=== PATIENT | female | born 1960 | race Caucasian/White ===

== ENCOUNTER 2017-02-19 13:28 | Outpatient (CLI) | payer BC ==
[~2017-02-19] VITALS: Ht 165.1 cm; Wt 94.8 kg
[2017-02-19] MEDS ORDERED: PANTOPRAZOLE 40 MG/10 ML (PROTONIX) VIAL ONE (13:49)
[2017-02-19] MEDS ORDERED: ONDANSETRON 4 MG/2 ML (SDV) Z0FRAN ONE (13:49)
[2017-02-19] MEDS ORDERED: METOCLOPRAMIDE INJ 10 MG/2 ML (REGLAN) ONE (13:49)
[2017-02-19] MEDS ORDERED: NS IV 1000 ML 2,000 ML ONE (13:50)
[2017-02-19] MEDS ORDERED: ONDANSETRON 4 MG/2 ML (SDV) Z0FRAN IV PRN (14:00)
[2017-02-19] MEDS ORDERED: PANTOPRAZOLE 40 MG/10 ML (PROTONIX) VIAL IV ONE (14:00)
[2017-02-19] MEDS ORDERED: METOCLOPRAMIDE INJ 10 MG/2 ML (REGLAN) IV PRN (14:00)
[2017-02-19] MEDS ORDERED: NS IV 1000 ML 1,000 ML IV SCH (14:00)
[2017-02-19 14:28] VITALS: BP 126/79
[2017-02-19 18:14] VITALS: BP 126/79
== END 2017-02-19 18:15 | disposition home or self-care (01) ==
LOC: SDC 13:28
PROVIDERS: ATTEND Nurse Practitioner Family
DX: R11.2 Nausea with vomiting, unspecified (principal); E86.0 Dehydration
CPT/HCPCS: 96360; 96361; 96374; 96375

== ENCOUNTER 2017-03-01 09:57 | Emergency (ER) | payer BC ==
[~2017-03-01] VITALS: Ht 165.1 cm; Wt 88.5 kg
--- NOTE | 2017-03-01 10:41 | ED GI ---
General Stated Complaint: CANT KEEP FOOD/LIQUIDS DOWN Source of Information: Patient Exam Limitations: No Limitations History of Present Illness Time Seen By Provider: 10:39 Initial Comments To ER with nausea and vomiting. She is only able to tolerate ice chips by mouth. She denies any abdominal pain fevers or chills. She is 3 weeks post gastric sleeve by Dr. Olson. She states that she has not been bowel movements. She has been trying Zofran and Phenergan at home without relief. Timing/Duration: 1-2 Days Severity/Quality: Other (no pain) Associated Symptoms: Nausea/Vomiting Allergies and Home Medications Allergies Coded Allergies: hydrocodone (Unverified Allergy, Unknown, 02/19/17) ITCHING PER PT Home Medications No Active Prescriptions or Reported Meds Review of Systems Constitutional: see HPI EENTM: No Symptoms Reported Respiratory: No Symptoms Reported Gastrointestinal: See HPI, Nausea, Vomiting Genitourinary: No Symptoms Reported Musculoskeletal: no symptoms reported Skin: no symptoms reported Psychiatric/Neurological: No Symptoms Reported Endocrine: No Symptoms Reported Past Fircwwv-Nhguib-Ttmtys Hx Patient Social History Type Used: Cigarettes Recent Foreign Travel: No Contact w/Someone Who Travel: No Recent Hopitalizations: No Immunizations Up To Date Tetanus Booster (TDap): Unknown Date of Influenza Vaccine: Dec 18, 2016 Seasonal Allergies Seasonal Allergies: No Surgeries HX Surgeries: Yes (BARIATRIC SX - JAN 2017, BREAST REDUCTION) Surgeries: Breast, Tonsillectomy Respiratory Hx Respiratory Disorders: No Cardiovascular Hx Cardiac Disorders: No Neurological Hx Neurological Disorders: No Reproductive System Hx Reproductive Disorders: No Genitourinary Hx Genitourinary Disorders: No Gastrointestinal Hx Gastrointestinal Disorders: No Musculoskeletal Hx Musculoskeletal Disorders: No Endocrine Hx Endocrine Disorders: No HEENT HX ENT Disorders: Yes (GLASSES) Loss of Vision: Bilateral Hearing Impairment: Denies Cancer Hx Cancer: No Psychosocial Hx Psychiatric Problems: Yes Behavioral Health Disorders: Anxiety Integumentary HX Skin/Integumentary Disorder: No Blood Transfusions Hx Blood Disorders: No Physical Exam Vital Signs VS - Last 72 Hours, by Label 03/01/17 10:41 Temp 97.5 Pulse 118 B/P (MAP) 129/99 Pulse Ox 98 Capillary Refill : General Appearance: WD/WN, no apparent distress HEENT: PERRL/EOMI, normal ENT inspection Neck: non-tender, full range of motion Respiratory: no respiratory distress, no accessory muscle use Cardiovascular: no murmur, tachycardia Gastrointestinal: normal bowel sounds, non tender, soft, other (incisions to the abdomen are clean dry and intact without drainage or surrounding erythema. Bowel sounds are hypoactive but present.) Extremities: normal range of motion, non-tender, normal inspection Neurologic/Psychiatric: alert, normal mood/affect, oriented x 3 Skin: normal color, warm/dry Progress/Results/Core Measures Results/Orders Lab Results Laboratory Tests Test 03/01/17 10:45 03/01/17 12:04 Range/Units White Blood Count 9.6 4.3-11.0 10^3/uL Red Blood Count 5.21 4.35-5.85 10^6/uL Hemoglobin 15.3 11.5-16.0 G/DL Hematocrit 46 35-52 % Mean Corpuscular Volume 88 80-99 FL Mean Corpuscular Hemoglobin 29 25-34 PG Mean Corpuscular Hemoglobin Concent 34 32-36 G/DL Red Cell Distribution Width 13.2 10.0-14.5 % Platelet Count 473 H 130-400 10^3/uL Mean Platelet Volume 11.3 H 7.4-10.4 FL Neutrophils (%) (Auto) 72 42-75 % Lymphocytes (%) (Auto) 17 12-44 % Monocytes (%) (Auto) 9 0-12 % Eosinophils (%) (Auto) 1 0-10 % Basophils (%) (Auto) 1 0-10 % Neutrophils # (Auto) 7.0 1.8-7.8 X 10^3 Lymphocytes # (Auto) 1.7 1.0-4.0 X 10^3 Monocytes # (Auto) 0.9 0.0-1.0 X 10^3 Eosinophils # (Auto) 0.1 0.0-0.3 10^3/uL Basophils # (Auto) 0.1 0.0-0.1 10^3/uL Sodium Level 146 H 135-145 MMOL/L Potassium Level 3.0 L 3.6-5.0 MMOL/L Chloride Level 102 98-107 MMOL/L Carbon Dioxide Level 22 21-32 MMOL/L Anion Gap 22 H 5-14 MMOL/L Blood Urea Nitrogen 18 7-18 MG/DL Creatinine 0.89 0.60-1.30 MG/DL Estimat Glomerular Filtration Rate > 60 BUN/Creatinine Ratio 20 Glucose Level 109 H 70-105 MG/DL Calcium Level 10.5 H 8.5-10.1 MG/DL Magnesium Level 2.0 1.8-2.4 MG/DL Total Bilirubin 0.5 0.1-1.0 MG/DL Aspartate Amino Transf (AST/SGOT) 20 5-34 U/L Alanine Aminotransferase (ALT/SGPT) 17 0-55 U/L Alkaline Phosphatase 21 L 40-136 U/L Total Protein 8.1 6.4-8.2 G/DL Albumin 4.3 3.2-4.5 G/DL Urine Color YELLOW Urine Clarity CLEAR Urine pH 6 5-9 Urine Specific [place] 1.020 1.016-1.022 Urine Protein 3+ H NEGATIVE Urine Glucose (UA) NEGATIVE NEGATIVE Urine Ketones 4+ H NEGATIVE Urine Nitrite NEGATIVE NEGATIVE Urine Bilirubin 2+ H NEGATIVE Urine Urobilinogen 4 H NORMAL MG/DL Urine Leukocyte Esterase 2+ H NEGATIVE Urine RBC (Auto) NEGATIVE NEGATIVE Urine RBC NONE /HPF Urine WBC 25-50 H /HPF Urine Squamous Epithelial Cells 10-25 H /HPF Urine Crystals NONE /LPF Urine Bacteria FEW H /HPF Urine Casts NONE /LPF Urine Mucus SMALL H /LPF Urine Culture Indicated YES My Orders Orders - VALERIE JUÁREZ APRN Saline Lock/Iv-Start (03/01/17 10:39) Lactated Ringers (Lr 1000 Ml Iv Solution (03/01/17 10:45) Diphenhydramine Injection (Benadryl Inje (03/01/17 10:45) Prochlorperazine Injection (Compazine In (03/01/17 10:45) Acute Abd Series (03/01/17 11:10) Potassium Chloride Powder (Klor Con 20 M (03/01/17 11:30) Ondansetron Injection (Zofran Injectio (03/01/17 11:45) Ceftriaxone Injection (Rocephin Injectio (03/01/17 12:30) Ns Iv 1000 Ml (Sodium Chloride 0.9%) (03/01/17 12:30) Medications Given in ED Current Medications Medications Dose Ordered Sig/Bela Route Start Time Stop Time Status Last Admin Dose Admin Diphenhydramine HCl 25 mg ONCE ONCE IVP 03/01/17 10:45 03/01/17 10:46 DC 03/01/17 11:07 25 MG Ondansetron HCl 8 mg ONCE ONCE IVP 03/01/17 11:45 03/01/17 11:46 DC 03/01/17 11:46 8 MG Prochlorperazine Edisylate 5 mg ONCE ONCE IV 03/01/17 10:45 03/01/17 10:46 DC 03/01/17 11:08 5 MG Vital Signs/I&O Vital Sign - Last 12Hours 03/01/17 10:41 Temp 97.5 Pulse 118 B/P (MAP) 129/99 Pulse Ox 98 Diagnostic Imaging Diagonstic Imaging: Xray Comments NAME: LARON DONOVAN [facility] REC#: [id number] PT STATUS: REG ER : 1960 PHYSICIAN: VALERIE JUÁREZ [employer] ADMIT DATE: 03/01/17/ER Draft Date of Exam:03/01/17 ACUTE ABD SERIES INDICATION: Unable to keep food down. History of gastric sleeve. COMPARISON: None available. FINDINGS: Lungs are clear. Please note that the posterior lower lobes are poorly evaluated on frontal view. No pleural effusion or pneumothorax. Normal heart size. No free intraperitoneal air. There are postoperative changes in the epigastric region compatible with the patient's gastric sleeve. Nonobstructive bowel gas pattern. No air-fluid levels on upright imaging. Age-related degenerative changes in the lumbar spine. IMPRESSION: 1. No acute cardiopulmonary process. 2. No free intraperitoneal air. Nonobstructive bowel gas pattern. 3. Postoperative changes in the epigastric region are compatible with patient's reported gastric sleeve. Dictated on workstation # [id number] Dict: 03/01/17 1130 Trans: 03/01/17 1140 CATIE [id number] Interpreted by: DANIEL CHUNG MD Electronically signed by: Departure Communication Progress Notes 1157-no improvement in her nausea after Benadryl 25 mg IV, Compazine 5 mg IV and Zofran 8 mg IV. However, she has not yet vomited. Impression Impression: Primary Impression: Post-operative nausea and vomiting Disposition: 01 HOME, SELF-CARE Condition: Stable Departure-Patient Inst. Decision time for Depature: 11:57 Referrals: ANA LILIA JOEL DO (PCP/Family) Primary Care Physician Patient Instructions: Nausea and Vomiting, Adult Add. Discharge Instructions: 1. Small frequent sips of liquids 2. Follow-up with Dr. Olson 3. Scripts Ciprofloxacin HCl (Cipro) 500 Mg Tablet 500 MG PO BID, #10 TAB Prov: VALERIE JUÁREZ APRN 03/01/17 VALERIE JUÁREZ APRN Mar 01, 2017 10:41
[2017-03-01] MEDS ORDERED: PROCHLORPERAZINE 10 MG/2ML INJ (COMPAZINE) IV ONE (10:45)
[2017-03-01] MEDS ORDERED: LACTATED RINGERS 1,000 ML IV SCH (10:45)
[2017-03-01] MEDS ORDERED: diphenhydrAMINE 50 MG/ML INJ (BENADRYL) IVP ONE (10:45)
[2017-03-01 10:54] LABS: BASOPHILS # (AUTO) 0.1 10^3/uL (0.0-0.1); BASOPHILS % (AUTO) 1 % (0-10); EOSINOPHILS # (AUTO) 0.1 10^3/uL (0.0-0.3); EOSINOPHILS % (AUTO) 1 % (0-10); LYMPHOCYTES # (AUTO) 1.7 X 10^3 (1.0-4.0); LYMPHOCYTES % (AUTO) 17 % (12-44); MEAN CORPUSCULAR HEMOGLOBIN 29 PG (25-34); MEAN CORPUSCULAR HGB CONC 34 G/DL (32-36); MEAN CORPUSCULAR VOLUME 88 FL (80-99); MEAN PLATELET VOLUME 11.3 FL (7.4-10.4); MONOCYTES # (AUTO) 0.9 X 10^3 (0.0-1.0); MONOCYTES % (AUTO) 9 % (0-12); NEUTROPHILS % (AUTO) 72 % (42-75); PLATELET COUNT 473 10^3/uL (130-400); RED BLOOD COUNT 5.21 10^6/uL (4.35-5.85); RED CELL DISTRIBUTION WIDTH 13.2 % (10.0-14.5); WHITE BLOOD COUNT 9.6 10^3/uL (4.3-11.0)
[2017-03-01 11:14] LABS: ALANINE AMINOTRANSFERASE 17 U/L (0-55); ALBUMIN 4.3 G/DL (3.2-4.5); ANION GAP 22 MMOL/L (5-14); ASPARTATE AMINO TRANSFERASE 20 U/L (5-34); BILIRUBIN,TOTAL 0.5 MG/DL (0.1-1.0); BLOOD UREA NITROGEN 18 MG/DL (7-18); BUN/CREATININE RATIO 20; CALCIUM 10.5 MG/DL (8.5-10.1); CARBON DIOXIDE 22 MMOL/L (21-32); CHLORIDE 102 MMOL/L (98-107); CREATININE SERUM 0.89 MG/DL (0.60-1.30); GFR ESTIMATED > 60; GLUCOSE 109 MG/DL (70-105); SODIUM 146 MMOL/L (135-145); TOTAL PROTEIN 8.1 G/DL (6.4-8.2)
[2017-03-01] MEDS ORDERED: KCL 20 MEQ POWDER FOR ORAL SOLUTION PO ONE (11:30)
--- NOTE | 2017-03-01 11:40 | Diagnostic Imaging Report ---
INDICATION: Unable to keep food down. History of gastric sleeve. COMPARISON: None available. FINDINGS: Lungs are clear. Please note that the posterior lower lobes are poorly evaluated on frontal view. No pleural effusion or pneumothorax. Normal heart size. No free intraperitoneal air. There are postoperative changes in the epigastric region compatible with the patient's gastric sleeve. Nonobstructive bowel gas pattern. No air-fluid levels on upright imaging. Age-related degenerative changes in the lumbar spine. IMPRESSION: 1. No acute cardiopulmonary process. 2. No free intraperitoneal air. Nonobstructive bowel gas pattern. 3. Postoperative changes in the epigastric region are compatible with patient's reported gastric sleeve. Dictated by: Dictated on workstation # [id number]
[2017-03-01] MEDS ORDERED: ONDANSETRON 4 MG/2 ML (SDV) Z0FRAN IVP ONE (11:45)
[2017-03-01 12:09] LABS: KETONES,URINE 4+ (NEGATIVE); LEUKOCYTE ESTERASE ,URINE 2+ (NEGATIVE); NITRITE,URINE NEGATIVE (NEGATIVE); PH,URINE 6 (5-9); PROTEIN,URINE 3+ (NEGATIVE); UROBILINOGEN,URINE 4 MG/DL (NORMAL)
[2017-03-01 12:17] LABS: BILIRUBIN,URINE 2+ (NEGATIVE); WBC,URINE 25-50 /HPF
[2017-03-01] MEDS ORDERED: cefTRIAXone INJECTION 1,000 MG in NS (IVPB) 50 ML IV ONE (12:30)
[2017-03-01] MEDS ORDERED: NS IV 1000 ML 1,000 ML IV SCH (12:30)
[2017-03-01] MEDS ORDERED: CIPR-225 PO (12:54)
[2017-03-01 13:13] VITALS: BP 124/80
== END 2017-03-01 13:13 | disposition home or self-care (01) ==
LOC: EDUNIT# 09:57 → ER 09:59
DX: R11.2 Nausea with vomiting, unspecified (principal); Z98.84 Bariatric surgery status
CPT/HCPCS: 36415; 74022; 80053; 81000; 83735; 85025; 87088; 96361; 96365; 96375